=== PATIENT | female | born 1995 | race Two or more races ===

== ENCOUNTER 2024-12-23 07:37 | Outpatient (CLI) | payer OTHER | END 2024-12-23 07:42 | disposition home or self-care (01) | LOC: PRENATAL 07:37 | PROVIDERS: ATTEND Obstetrics & Gynecology Maternal & Fetal Medicine | DX: O44.00 Complete placenta previa NOS or without hemorrhage, unspecified trimester (principal); Z3A.19 19 weeks gestation of pregnancy ==

== ENCOUNTER 2025-01-04 17:08 | Inpatient (IN) | payer OTHER ==
[~2025-01-04] VITALS: Ht 160 cm; Wt 61.7 kg
[2025-01-04 17:30] VITALS: BP 123/68
[2025-01-04 18:06] LABS: BASO % 0.3 % (0.1-1.2); EOS # 0.00 (0.04-0.54); EOS % 0.0 % (0.7-7.0); LYMPH # 2.34 (1.18-3.74); LYMPH % 19.3 % (19.3-53.1); MEAN PLATELET VOLUME 11.10 fl (9.4-12.4); MONO # 0.92 (0.24-0.82); MONO % 7.6 % (4.7-12.5); NEUT # 8.76 (1.56-6.13); NEUT % 72.5 % (34.0-71.1); RED CELL DISTRIBUTION WIDTH 13.7 % (11.6-14.4)
[2025-01-04 18:07] LABS: URINE APPEARANCE Clear; URINE BILIRRUBIN Negative (NEGATIVE); URINE BLOOD Negative; URINE COLOR Yellow; URINE GLUCOSE Negative (NEGATIVE); URINE KETONE Negative (NEGATIVE); URINE LEUKOCYTE Negative; URINE NITRATE Negative; URINE PROTEIN Negative (NEGATIVE); URINE UROBILINOGEN 0.2 E.U./dl
[2025-01-04 18:10] LABS: URINE BACTERIA 353.9 uL (0.0-1933); URINE EPITHELIAL CELLS 25.8 uL (0.0-38.8); URINE RBC 24.9 uL (0.0-20.8); URINE WBC 6.4 uL (0.0-23.2)
[2025-01-04] MEDS ORDERED: PRENATA CHEWAB1 EACH PO (18:12)
[2025-01-04] MEDS ORDERED: RINGERS SOLUTION,LACTATED 1,000 ML IV SCH (18:15)
[2025-01-04 18:30] LABS: INR 0.96; URINE CAST 0.00 uL (0.0-1.40)
[2025-01-04 19:59] VITALS: BP 111/57
[2025-01-04] MEDS ORDERED: MISOPROSTOL 100 MCG TABLET VAG STA (21:03)
[2025-01-04] MEDS ORDERED: MORPHINE SULFATE 4 MG/ML VIAL IV PRN (22:30)
[2025-01-04 23:37] VITALS: BP 119/62
[2025-01-05 03:42] VITALS: BP 125/67
[2025-01-05] MEDS ORDERED: LIDOCAINE HCL 1% 10ML VIAL ONE (04:34)
[2025-01-05] MEDS ORDERED: CHLORHEXIDINE GLUCONATE 120 ML BOTTLE TOP ONE (04:34)
[2025-01-05] MEDS ORDERED: OXYTOCIN 20 UNITS/1000ML RL PIGGYBAG IV ONE (04:34)
[2025-01-05] MEDS ORDERED: MISOPROSTOL 100 MCG TABLET ONE (05:25)
[2025-01-05] MEDS ORDERED: MORPHINE SULFATE 4 MG/ML CARTRIDGE IV PRN (07:00)
[2025-01-05 07:40] VITALS: BP 129/75
[2025-01-05 09:41] VITALS: BP 107/63
[2025-01-05 17:39] VITALS: BP 112/67
[2025-01-06 00:33] VITALS: BP 98/60
[2025-01-06 08:00] VITALS: BP 113/72
== END 2025-01-06 15:00 | disposition home or self-care (01) | DRG 807 ==
LOC: LDR 17:08 → OB/GYN 01-05 07:50
PROVIDERS: ADMIT Obstetrics & Gynecology; ATTEND Obstetrics & Gynecology
PROC: 3E033VJ Introduction of Other Hormone into Peripheral Vein, Percutaneous Approach (ICD-10-PCS; 2025-01-04)
PROC: 4A1HXCZ Monitoring of Products of Conception, Cardiac Rate, External Approach (ICD-10-PCS; 2025-01-04)
PROC: 10E0XZZ Delivery of Products of Conception, External Approach (ICD-10-PCS; principal; 2025-01-05)
PROC: 3E0P7VZ Introduction of Hormone into Female Reproductive, Via Natural or Artificial Opening (ICD-10-PCS; 2025-01-05)
DX: O43.192 Other malformation of placenta, second trimester (principal); Z37.1 Single stillbirth; Z3A.21 21 weeks gestation of pregnancy